=== PATIENT | female | born 1990 | race Hispanic/Latino ===

== ENCOUNTER 2020-04-11 15:11 | Emergency (ER) | payer SELFPAY ==
[~2020-04-11] VITALS: Ht 175.3 cm; Wt 54.4 kg
--- NOTE | 2020-04-11 15:33 | Emergency Department Note ---
History of Present Illnes History of Present Illness Chief Complaint: General Medicine Complaints History of Present Illness This is a 29 year old female was carrying her son on her back when she experienced a sudden onset of dizziness followed by LOC. Patient denies CP. States she recently donated plasma. H/O ITP . 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 Any updates have been documented here. Past Medical History Recent Fever: No Clinical Suspicion of Infectio: No New/Unexplained Change in Ment: No Other Medical History: ITP Past Surgical History: None Social History Smoking Cessation: Never Smoker Alcohol Use: None Any Illegal Drug Use: No Review of Systems Review of Systems Constitutional: Reports weakness EENTM: Reports no symptoms Cardiovascular: Reports no symptoms Respiratory: Reports no symptoms Gastrointestinal: Reports no symptoms Genitourinary: Reports no symptoms Musculoskeletal: Reports no symptoms Integumentary: Reports no symptoms Neurological: Reports no symptoms Psychological: Reports no symptoms Endocrine: Reports no symptoms Hematological/Lymphatic: Reports no symptoms Physical Exam Related Data Triage Vital Signs Vital Signs Date Time Temp Pulse Resp B/P (MAP) Pulse Ox O2 Delivery O2 Flow Rate FiO2 04/11/20 15:15 99.1 86 18 121/90 100 Vital signs reviewed: Yes Physical Exam CONSTITUTIONAL Constitutional: Present well-developed, Present well-nourished HENT HENT: Present normocephalic, Present atraumatic, Present oropharynx clear/ moist, Present nose normal HENT L/R: Present left ext ear normal, Present right ext ear normal EYES Eyes: Reports PERRL, Reports conjunctivae normal NECK Neck: Present ROM normal PULMONARY Pulmonary: Present effort normal, Present breath sounds normal CARDIOVASCULAR Cardiovascular: Present regular rhythm, Present heart sounds normal, Present capillary refill normal, Present normal rate GASTROINTESTINAL Abdominal: Present soft, Present nontender, Present bowel sounds normal GENITOURINARY Genitourinary: Present exam deferred SKIN Skin: Present warm, Present dry MUSCULOSKELETAL Musculoskeletal: Present ROM normal NEUROLOGICAL Neurological: Present alert, Present oriented x 3, Present no gross motor or sensory deficits PSYCHOLOGICAL Psychological: Present mood/affect normal, Present judgement normal Results Laboratory Lab results reviewed: Yes Laboratory comments WBC 5.2 Platelet 102 CMP : neg UA : neg ketones , small blood Imaging Imaging results reviewed: Yes Impressions [place] [id number] Patient Name: CHRISTOS XIAO MR #: [id number] : 1990 Age/Sex: 29/F Req #: [id number] Adm Physician: Ordered by: HAL MIR DO Report #: [id number] Location: [facility] Room/Bed: Procedure: [id number] HOPD/CT BRAIN WO-HOPD Exam Date: 04/11/20 Exam Time: 1611 REPORT STATUS: Signed Exam: Head CT without contrast History: Syncope, dizziness Comparison studies: None Technique: Axial images were obtained from the skull base to the vertex. Coronal and sagittal images reconstructed from the axial data. Dose modulation, iterative reconstruction, and/or weight based adjustment of the mA/kV was utilized to reduce the radiation dose to as low as reasonably achievable. Radiation dose: Total DLP: 969.14 mGy*cm. Estimated effective dose: DLP x 0.015 Intravenous contrast: None Findings: Scalp: No abnormalities. Bones: No fractures, blastic or lytic lesions. Brain sulci: Appropriate for age. Ventricles: Normal in size and configuration. No hydrocephalus. Extra-axial spaces: No masses, no fluid collection. Parenchyma: No abnormal densities. No masses, hemorrhage, acute or chronic vascular insults. Sellar/suprasellar region: No abnormalities. Craniocervical junction: Patent foramen magnum. No Chiari one malformation. Middle ear cavities and mastoids: Clear. Paranasal sinuses: Clear. IMPRESSION: No abnormalities. Signed by: Dr. Agnes Rosales M.D. on 04/11/2020 4:36 PM Dictated By: AGNES ROSALES MD 35 Transcribed By: GRICEL on 04/11/201635 COPY TO: HAL MIR DO~ Procedures 12 Lead ECG Interpretation ECG Interpretation : ECG: ECG 1 Township Supervisor: Interpreted by ED physician Date: Apr 11, 2020 Time: 16:43 Prior ECG tracings: reviewed Rhythm: sinus rhythm Rate: normal BPM: 82 QRS axis: normal ST segments normal: Yes T waves normal: Yes Clinical Impression: normal ECG Assessment & Plan Medical Decision Making MDM Diff Dx : PE, SAH, ACS, dehydration/hypovolemia, Assessment & Plan Final Impression: (1) Syncope and collapse Depart Disposition: HOME, SELF-CARE Last Vital Signs Date Time Temp Pulse Resp B/P (MAP) Pulse Ox O2 Delivery O2 Flow Rate FiO2 04/11/20 17:28 84 18 100 04/11/20 15:15 99.1 121/90 HAL MIR DO Apr 11, 2020 15:32
--- NOTE | 2020-04-11 16:39 | Diagnostic Imaging Report ---
Exam: Head CT without contrast History: Syncope, dizziness Comparison studies: None Technique: Axial images were obtained from the skull base to the vertex. Coronal and sagittal images reconstructed from the axial data. Dose modulation, iterative reconstruction, and/or weight based adjustment of the mA/kV was utilized to reduce the radiation dose to as low as reasonably achievable. Radiation dose: Total DLP: 969.14 mGy*cm. Estimated effective dose: DLP x 0.015 Intravenous contrast: None Findings: Scalp: No abnormalities. Bones: No fractures, blastic or lytic lesions. Brain sulci: Appropriate for age. Ventricles: Normal in size and configuration. No hydrocephalus. Extra-axial spaces: No masses, no fluid collection. Parenchyma: No abnormal densities. No masses, hemorrhage, acute or chronic vascular insults. Sellar/suprasellar region: No abnormalities. Craniocervical junction: Patent foramen magnum. No Chiari one malformation. Middle ear cavities and mastoids: Clear. Paranasal sinuses: Clear. IMPRESSION: No abnormalities. Signed by: Dr. Hair Little M.D. on 04/11/2020 4:36 PM
== END 2020-04-11 17:31 | disposition home or self-care (01) ==
LOC: FSED 15:11
DX: R42 Dizziness and giddiness (principal); R55 Syncope and collapse; D69.3 Immune thrombocytopenic purpura; W01.0XXA Fall on same level from slipping, tripping and stumbling without subsequent striking against object, initial encounter; Y92.008 Other place in unspecified non-institutional (private) residence as the place of occurrence of the external cause
CPT/HCPCS: 70450; 80053; 81003; 82553; 84484; 85025; 93005; 99283

== ENCOUNTER 2020-07-20 10:15 | Emergency (ER) | payer SELFPAY ==
[~2020-07-20] VITALS: Ht 175.3 cm; Wt 56.7 kg
[2020-07-20] MEDS ORDERED: ONDANSETRON HCL INJ 2MG/ML 2ML 2 MG/ML VIAL IV ONE (10:35)
[2020-07-20] MEDS ORDERED: MORPHINE SULFATE INJ 4 MG/ML INJ 1ML IV PRN (10:45)
[2020-07-20 11:09] LABS: BASOPHILS % 0.4 % (0.0-1.0); EOSINOPHILS % 0.3 % (0.0-6.0); HEMATOCRIT 44.8 % (34.2-44.1); HEMOGLOBIN 15.1 g/dL (12.0-16.0); LYMPHOCYTES # (AUTO) 1.5 (1.0-3.2); LYMPHOCYTES % 22.1 % (18.0-39.1); MEAN CORPUSCULAR HEMOGLOBIN 29.9 pg (28-32); MEAN CORPUSCULAR HGB CONC 33.7 g/dL (31-35); MEAN CORPUSCULAR VOLUME 88.7 fL (81-99); MONOCYTES # (AUTO) 0.3 (0.2-0.8); MONOCYTES % 3.7 % (4.4-11.3); NEUTROPHILS % 73.2 % (38.7-80.0); PLATELET COUNT 61 x10e3/uL (140-360); RED BLOOD COUNT 5.05 x10e6/uL (3.6-5.1); RED CELL DISTRIBUTION WIDTH 12.5 % (11.7-14.4)
[2020-07-20 11:34] LABS: ALANINE AMINOTRANSFERASE 12 IU/L (0-55); ALBUMIN 4.4 g/dL (3.5-5.0); ALBUMIN/GLOBULIN RATIO 1.4 (0.8-2.0); ALKALINE PHOSPHATASE 50 IU/L (40-150); ANION GAP 12.6 mmol/L (8-16); BLOOD UREA NITROGEN 7 mg/dL (7-26); BUN/CREATININE RATIO 11 (6-25); CALCIUM 8.5 mg/dL (8.4-10.2); CARBON DIOXIDE 24 mmol/L (22-29); CHLORIDE 108 mmol/L (98-107); CREATINE KINASE 40 IU/L (29-168); CREATININE, SERUM 0.66 mg/dL (0.57-1.11); EST GLOMERULAR FILTRATION RATE > 60 ML/MIN (60-); GLUCOSE 80 mg/dL (74-118); POTASSIUM 3.6 mmol/L (3.5-5.1); SODIUM 141 mmol/L (136-145)
[2020-07-20 11:35] LABS: CLARITY,URINE CLEAR (CLEAR); COLOR,URINE YELLOW (YELLOW); KETONES,URINE NEGATIVE (NEGATIVE); LEUKOCYTE ESTERASE ,URINE SMALL (NEGATIVE); NITRITE,URINE NEGATIVE (NEGATIVE); PREGNANCY TEST, URINE NEGATIVE (NEGATIVE); PROTEIN,URINE DIPSTICK NEGATIVE (NEGATIVE); URINE UROBILINOGEN 1 mg/dL (0.2 - 1)
[2020-07-20] MEDS ORDERED: IOPAMIDOL 370 MG/ML 200 ML INFUS..BTL INJ ONE (11:45)
[2020-07-20] MEDS ORDERED: SODIUM CHLORIDE 0.9% 50ML 50 ML ONE (11:45)
[2020-07-20 12:06] LABS: TRICHOMONAS,URINE FEW
[2020-07-20 12:07] LABS: BACTERIA,URINE MODERATE /HPF; EPITHELIAL CELLS,URINE MANY /LPF; RBC,URINE 0-5 /HPF (0-5)
[2020-07-20] MEDS ORDERED: KETOROLAC TROMETHAMINE 30 MG/ML VIAL IV ONE (12:16)
[2020-07-20] MEDS ORDERED: KEFLEX500 MG PO (12:34)
[2020-07-20] MEDS ORDERED: ULTRAM 50MG50 MG PO (12:34)
[2020-07-20] MEDS ORDERED: ZOFRAN4 MG SL (12:34)
[2020-07-20] MEDS ORDERED: ONDANSETRON HCL 4 MG ORAL DISINTEGRATING TAB PO ONE (12:45)
[2020-07-20 13:00] VITALS: BP 110/97
== END 2020-07-20 13:00 | disposition home or self-care (01) ==
LOC: ER 10:20
DX: R10.31 Right lower quadrant pain (principal); N39.0 Urinary tract infection, site not specified; R11.2 Nausea with vomiting, unspecified; R05 Cough; I10 Essential (primary) hypertension; E11.9 Type 2 diabetes mellitus without complications
CPT/HCPCS: 36415; 71045; 74177; 80053; 81001; 81025; 82550; 82553; 84484; 85025; 99284; J1885; J2270; J2405; Q0162; Q9967

== ENCOUNTER 2020-08-22 09:45 | Emergency (ER) | payer SELFPAY ==
[~2020-08-22] VITALS: Ht 175.3 cm; Wt 56.7 kg
[~2020-08-22 09:45] MED LIST: KEFLEX500 MG PO; ULTRAM 50MG50 MG PO; ZOFRAN4 MG SL
[2020-08-22] MEDS ORDERED: IBUPROFEN 600 MG TAB PO STA (10:01)
[2020-08-22 11:04] LABS: INFLUENZAE A&B ANTIGEN (RAPID) NEGATIVE (NEGATIVE)
[2020-08-22 11:05] LABS: STREPTOCOCCUS GRP A ANTIGEN NEGATIVE (NEGATIVE)
== END 2020-08-22 11:30 | disposition home or self-care (01) ==
LOC: ER 10:24
DX: J06.9 Acute upper respiratory infection, unspecified (principal); R05 Cough; R51.9 Headache, unspecified; I10 Essential (primary) hypertension; E11.9 Type 2 diabetes mellitus without complications; D69.3 Immune thrombocytopenic purpura; F17.210 Nicotine dependence, cigarettes, uncomplicated
CPT/HCPCS: 83518; 87070; 87400; 99283

== ENCOUNTER 2020-10-08 08:33 | Emergency (ER) | payer SELFPAY ==
[~2020-10-08] VITALS: Ht 175.3 cm; Wt 56.7 kg
== END 2020-10-08 10:13 | disposition home or self-care (01) ==
LOC: ER 08:57
DX: L03.011 Cellulitis of right finger (principal); S61.250A Open bite of right index finger without damage to nail, initial encounter; W55.01XA Bitten by cat, initial encounter; Y92.008 Other place in unspecified non-institutional (private) residence as the place of occurrence of the external cause
CPT/HCPCS: 99283

== ENCOUNTER 2024-04-16 19:28 | Emergency (ER) | payer OTHER ==
[~2024-04-16] VITALS: Ht 175.3 cm; Wt 68.0 kg
[2024-04-16] MEDS ORDERED: LEVETIRACETAM 1000 MG/100 ML IV ONE (19:45)
[2024-04-16 20:12] LABS: BASOPHILS % 0.5 % (0.0-1.0); EOSINOPHILS # (AUTO) 0.1 (0.0-0.4); EOSINOPHILS % 1.1 % (0.0-6.0); HEMOGLOBIN 12.9 g/dL (12.0-16.0); LYMPHOCYTES # (AUTO) 2.3 (1.0-3.2); LYMPHOCYTES % 30.9 % (18.0-39.1); MEAN CORPUSCULAR HEMOGLOBIN 30.9 pg (28-32); MEAN CORPUSCULAR HGB CONC 33.1 g/dL (31-35); MEAN CORPUSCULAR VOLUME 93.3 fL (81-99); MONOCYTES # (AUTO) 0.4 (0.2-0.8); MONOCYTES % 5.5 % (4.4-11.3); NEUTROPHILS # (AUTO) 4.7 (2.1-6.9); NEUTROPHILS % 61.9 % (38.7-80.0); PLATELET COUNT 135 x10e3/uL (140-360); RED BLOOD COUNT 4.18 x10e6/uL (3.6-5.1); RED CELL DISTRIBUTION WIDTH 11.9 % (11.7-14.4); WHITE BLOOD COUNT 7.58 x10e3/uL (4.8-10.8)
[2024-04-16] MEDS: SODIUM CHLORIDE 0.9% IV ONE (20:15)
[2024-04-16] MEDS: LEVETIRACETAM IV ONE (20:15)
[2024-04-16] MEDS: ACETAMINOPHEN 325 MG TAB PO ONE (20:16)
[2024-04-16] MEDS: KETOROLAC TROMETHAMINE 30 MG/ML VIAL IV STA (20:18)
[2024-04-16] MEDS ORDERED: KEPPRA500 MG PO (20:24)
[2024-04-16 20:27] LABS: ALBUMIN/GLOBULIN RATIO 1.4 (0.8-2.0); ANION GAP 12.5 mmol/L (8-16); BILIRUBIN,TOTAL 0.3 mg/dL (0.2-1.2); CALCIUM 9.5 mg/dL (8.4-10.2); CREATININE, SERUM 0.77 mg/dL (0.57-1.11); POTASSIUM 3.5 mmol/L (3.5-5.1); TOTAL PROTEIN 6.9 g/dL (6.5-8.1)
[2024-04-16 20:41] LABS: EOSINOPHILS % (MANUAL) 1 % (0-7); LYMPHOCYTES % (MANUAL) 32 % (19-48); NEUTROPHILS % (MANUAL) 66 % (40-74); PLATELET ESTIMATE ADEQUATE; PLATELET MORPHOLOGY COMMENT NORMAL; RBC MORPHOLOGY COMMENT NORMAL; REACTIVE LYMPHOCYTES 1
[2024-04-16 23:01] VITALS: PULSE 67; RESP 16; TEMP 98.3; O2SAT 99
== END 2024-04-16 23:02 | disposition home or self-care (01) ==
LOC: ER 19:35
DX: G40.909 Epilepsy, unspecified, not intractable, without status epilepticus (principal); I10 Essential (primary) hypertension; E11.9 Type 2 diabetes mellitus without complications; D69.3 Immune thrombocytopenic purpura; F31.9 Bipolar disorder, unspecified
CPT/HCPCS: 36415; 80053; 82542; 84702; 85025; 99284; J1885; J1953; J7050

== ENCOUNTER 2024-05-17 13:21 | Emergency (ER) | payer SELFPAY ==
[~2024-05-17] VITALS: Ht 175.3 cm; Wt 68.0 kg
[~2024-05-17 13:21] MED LIST changes: +KEPPRA500 MG PO
[2024-05-17 14:11] VITALS: TEMP 97.3
[2024-05-17 14:25] LABS: BASOPHILS % 0.5 % (0.0-1.0); EOSINOPHILS % 0.5 % (0.0-6.0); HEMATOCRIT 40.9 % (34.2-44.1); HEMOGLOBIN 13.9 g/dL (12.0-16.0); LYMPHOCYTES # (AUTO) 1.9 (1.0-3.2); LYMPHOCYTES % 24.3 % (18.0-39.1); MEAN CORPUSCULAR HEMOGLOBIN 31.4 pg (28-32); MEAN CORPUSCULAR VOLUME 92.3 fL (81-99); MONOCYTES # (AUTO) 0.4 (0.2-0.8); MONOCYTES % 4.9 % (4.4-11.3); NEUTROPHILS # (AUTO) 5.6 (2.1-6.9); NEUTROPHILS % 69.5 % (38.7-80.0); PLATELET COUNT 135 x10e3/uL (140-360); RED BLOOD COUNT 4.43 x10e6/uL (3.6-5.1); RED CELL DISTRIBUTION WIDTH 11.8 % (11.7-14.4); WHITE BLOOD COUNT 7.99 x10e3/uL (4.8-10.8)
[2024-05-17 14:39] LABS: INR 0.98; PARTIAL THROMBOPLASTIN TIME 28.8 seconds (23.8-35.5); PROTHROMBIN TIME 13.5 seconds (11.9-14.5)
[2024-05-17 14:47] LABS: ALANINE AMINOTRANSFERASE 15 IU/L (0-55); ALBUMIN 4.2 g/dL (3.5-5.0); ALBUMIN/GLOBULIN RATIO 1.4 (0.8-2.0); ALKALINE PHOSPHATASE 56 IU/L (40-150); ANION GAP 14.8 mmol/L (8-16); BILIRUBIN,TOTAL 0.9 mg/dL (0.2-1.2); BLOOD UREA NITROGEN 6 mg/dL (7-26); BUN/CREATININE RATIO 8 (6-25); CALCIUM 9.1 mg/dL (8.4-10.2); CARBON DIOXIDE 22 mmol/L (22-29); CHLORIDE 105 mmol/L (98-107); CREATINE KINASE 52 IU/L (29-168); CREATININE, SERUM 0.76 mg/dL (0.57-1.11); EST GLOMERULAR FILTRATION RATE 106 ML/MIN (>=60); GLUCOSE 88 mg/dL (74-118); POTASSIUM 3.8 mmol/L (3.5-5.1); SODIUM 138 mmol/L (136-145); TOTAL PROTEIN 7.2 g/dL (6.5-8.1)
[2024-05-17 14:55] LABS: TROPONIN I < 0.001 ng/mL (0-0.300)
[2024-05-17] MEDS ORDERED: IOPAMIDOL 370 MG/ML 100 ML INFUS..BTL INJ ONE (15:59)
[2024-05-17] MEDS: FAMOTIDINE 20 MG/2 ML VIAL IV STA (17:28)
[2024-05-17 17:31] VITALS: PULSE 71; RESP 17; O2SAT 100
[2024-05-17] MEDS ORDERED: ONDANSETRON ODT4 MG PO (17:35)
[2024-05-17] MEDS ORDERED: ACID REDUCER20 MG PO (17:35)
[2024-05-17 18:53] LABS: LYMPHOCYTES % (MANUAL) 24 % (19-48); MONOCYTES % (MANUAL) 5 % (3.4-9.0); NEUTROPHILS % (MANUAL) 71 % (40-74)
[2024-05-17 18:54] LABS: PLATELET ESTIMATE SLIGHTLY DECREASED; PLATELET MORPHOLOGY COMMENT NORMAL; RBC MORPHOLOGY COMMENT NORMAL
== END 2024-05-17 18:53 | disposition home or self-care (01) ==
LOC: ER 14:10
DX: K92.0 Hematemesis (principal); K29.70 Gastritis, unspecified, without bleeding; I10 Essential (primary) hypertension; E11.9 Type 2 diabetes mellitus without complications; G40.909 Epilepsy, unspecified, not intractable, without status epilepticus; F31.9 Bipolar disorder, unspecified
CPT/HCPCS: 36415; 71045; 71260; 74177; 80053; 82550; 83690; 84484; 84702; 85025; 85610; 85730; 93005; 99284; J2470; Q9967

== ENCOUNTER 2024-06-24 17:53 | Emergency (ER) | payer OTHER ==
[~2024-06-24] VITALS: Ht 175.3 cm; Wt 68.0 kg
[~2024-06-24 17:53] MED LIST changes: +ACID REDUCER20 MG PO; +ONDANSETRON ODT4 MG PO
[2024-06-24 18:05] VITALS: TEMP 98.9
[2024-06-24 18:52] LABS: BASOPHILS % 0.4 % (0.0-1.0); EOSINOPHILS # (AUTO) 0.1 (0.0-0.4); EOSINOPHILS % 0.8 % (0.0-6.0); HEMATOCRIT 42.1 % (34.2-44.1); HEMOGLOBIN 13.8 g/dL (12.0-16.0); LYMPHOCYTES % 31.8 % (18.0-39.1); MEAN CORPUSCULAR HEMOGLOBIN 30.3 pg (28-32); MEAN CORPUSCULAR HGB CONC 32.8 g/dL (31-35); MEAN CORPUSCULAR VOLUME 92.5 fL (81-99); MONOCYTES # (AUTO) 0.6 (0.2-0.8); MONOCYTES % 6.2 % (4.4-11.3); NEUTROPHILS # (AUTO) 5.7 (2.1-6.9); NEUTROPHILS % 60.7 % (38.7-80.0); PLATELET COUNT 132 x10e3/uL (140-360); RED BLOOD COUNT 4.55 x10e6/uL (3.6-5.1); RED CELL DISTRIBUTION WIDTH 11.7 % (11.7-14.4); WHITE BLOOD COUNT 9.31 x10e3/uL (4.8-10.8)
[2024-06-24 19:02] LABS: ANION GAP 15.4 mmol/L (8-16); BLOOD UREA NITROGEN 7 mg/dL (7-26); BUN/CREATININE RATIO 10 (6-25); CALCIUM 9.4 mg/dL (8.4-10.2); CARBON DIOXIDE 21 mmol/L (22-29); CHLORIDE 106 mmol/L (98-107); CREATININE, SERUM 0.73 mg/dL (0.57-1.11); EST GLOMERULAR FILTRATION RATE 111 ML/MIN (>=60); GLUCOSE 95 mg/dL (74-118); SODIUM 139 mmol/L (136-145)
[2024-06-24] MEDS: ACETAMINOPHEN 325 MG TAB PO ONE (19:03)
[2024-06-24 19:10] LABS: POTASSIUM 3.4 mmol/L (3.5-5.1)
[2024-06-24] MEDS: IBUPROFEN 600 MG TAB PO STA (19:20)
[2024-06-24 19:21] LABS: COVID 19 ANTIGEN NOT DETECTED (NEGATIVE)
[2024-06-24 19:25] VITALS: PULSE 79; RESP 18
[2024-06-24 20:24] VITALS: BP 118/67; PULSE 68; RESP 18; TEMP 98.1; O2SAT 97
== END 2024-06-24 20:30 | disposition home or self-care (01) ==
LOC: ER 18:07
DX: R05.9 Cough, unspecified (principal); R07.81 Pleurodynia; I10 Essential (primary) hypertension; E11.9 Type 2 diabetes mellitus without complications; G40.909 Epilepsy, unspecified, not intractable, without status epilepticus; F31.9 Bipolar disorder, unspecified; Z11.52 Encounter for screening for COVID-19
CPT/HCPCS: 0223U; 36415; 71045; 80048; 84484; 85025; 87400; 93005; 99284

== ENCOUNTER 2024-07-05 11:21 | Emergency (ER) | payer MEDICARE, OTHER ==
[~2024-07-05] VITALS: Ht 175.3 cm; Wt 65.8 kg
[2024-07-05 11:35] VITALS: TEMP 97.8
[2024-07-05 12:04] LABS: BASOPHILS % 0.4 % (0.0-1.0); HEMOGLOBIN 13.4 g/dL (12.0-16.0); LYMPHOCYTES # (AUTO) 1.7 (1.0-3.2); LYMPHOCYTES % 22.6 % (18.0-39.1); MEAN CORPUSCULAR HEMOGLOBIN 29.8 pg (28-32); MEAN CORPUSCULAR HGB CONC 32.7 g/dL (31-35); MEAN CORPUSCULAR VOLUME 91.3 fL (81-99); MONOCYTES # (AUTO) 0.4 (0.2-0.8); MONOCYTES % 5.2 % (4.4-11.3); NEUTROPHILS # (AUTO) 5.5 (2.1-6.9); NEUTROPHILS % 71.4 % (38.7-80.0); PLATELET COUNT 139 x10e3/uL (140-360); RED BLOOD COUNT 4.49 x10e6/uL (3.6-5.1); RED CELL DISTRIBUTION WIDTH 11.9 % (11.7-14.4); WHITE BLOOD COUNT 7.64 x10e3/uL (4.8-10.8)
[2024-07-05 12:20] LABS: ANION GAP 16.2 mmol/L (8-16); CALCIUM 9.4 mg/dL (8.4-10.2); CREATININE, SERUM 0.76 mg/dL (0.57-1.11)
[2024-07-05 12:24] LABS: POTASSIUM 3.2 mmol/L (3.5-5.1)
[2024-07-05 12:30] VITALS: PULSE 67; RESP 16
[2024-07-05] MEDS ORDERED: PROMETHAZINE HC25 M1 PO (12:47)
[2024-07-05] MEDS ORDERED: TRAZODONE HCL50 MG PO (12:48)
[2024-07-05 13:37] VITALS: BP 132/83; PULSE 72; O2SAT 100
== END 2024-07-05 14:00 | disposition home or self-care (01) ==
LOC: ER 11:26
DX: R55 Syncope and collapse (principal); I10 Essential (primary) hypertension; E11.9 Type 2 diabetes mellitus without complications; G40.909 Epilepsy, unspecified, not intractable, without status epilepticus; F31.9 Bipolar disorder, unspecified; F17.210 Nicotine dependence, cigarettes, uncomplicated
CPT/HCPCS: 36415; 80048; 84702; 85025; 93005; 99284

== ENCOUNTER 2024-09-23 08:14 | Emergency (ER) | payer OTHER ==
[~2024-09-23] VITALS: Ht 175.3 cm; Wt 65.8 kg
[~2024-09-23 08:14] MED LIST changes: +PROMETHAZINE HC25 M1 PO; +TRAZODONE HCL50 MG PO
[2024-09-23 08:22] VITALS: PULSE 96; RESP 16; TEMP 98.7; O2SAT 100
[2024-09-23] MEDS ORDERED: MEDROL4 M2 PO (08:36)
== END 2024-09-23 08:50 | disposition home or self-care (01) ==
LOC: ER 08:16
DX: L29.9 Pruritus, unspecified (principal); I10 Essential (primary) hypertension; E11.9 Type 2 diabetes mellitus without complications; G40.909 Epilepsy, unspecified, not intractable, without status epilepticus; F31.9 Bipolar disorder, unspecified; F17.210 Nicotine dependence, cigarettes, uncomplicated
CPT/HCPCS: 99282

== ENCOUNTER 2025-04-09 18:34 | Emergency (ER) | payer OTHER ==
[~2025-04-09] VITALS: Ht 175.3 cm; Wt 65.8 kg
[~2025-04-09 18:34] MED LIST changes: +MEDROL4 M2 PO
[2025-04-09 18:43] VITALS: TEMP 98
[2025-04-09 19:29] LABS: BASOPHILS % 0.7 % (0.0-1.0); EOSINOPHILS % 0.4 % (0.0-6.0); LYMPHOCYTES % 32.4 % (18.0-39.1); MONOCYTES % 4.9 % (4.4-11.3); NEUTROPHILS % 61.5 % (38.7-80.0); RED CELL DISTRIBUTION WIDTH 12.4 % (11.7-14.4)
[2025-04-09 19:42] LABS: EST GLOMERULAR FILTRATION RATE 101.0 ML/MIN (>=60)
[2025-04-09] MEDS: KETOROLAC TROMETHAMINE 30 MG/ML VIAL IV STA (19:56)
[2025-04-09] MEDS: SODIUM CHLORIDE 0.9% 1000ML 1,000 ML IV ONE (20:01)
[2025-04-09] MEDS ORDERED: IOPAMIDOL 370 MG/ML 100 ML INFUS..BTL INJ ONE (20:14)
[2025-04-09] MEDS: ONDANSETRON HCL INJ 2MG/ML 2ML 2 MG/ML VIAL IV STA (20:15)
[2025-04-09 20:47] LABS: LEUKOCYTE ESTERASE ,URINE NEGATIVE (NEGATIVE); PROTEIN,URINE DIPSTICK TRACE (NEGATIVE)
[2025-04-09 20:48] LABS: URINE UROBILINOGEN 1 mg/dL (0.2 - 1)
[2025-04-09 20:56] LABS: EPITHELIAL CELLS,URINE MANY /LPF
[2025-04-09 21:30] VITALS: PULSE 82; RESP 16
[2025-04-09] MEDS ORDERED: ONDANSETRON ODT4 MG SL (21:42)
[2025-04-09] MEDS ORDERED: MACROBID 100 M100 MG PO (21:42)
[2025-04-09 21:52] VITALS: BP 101/60; PULSE 82; RESP 16; O2SAT 100
== END 2025-04-09 21:50 | disposition home or self-care (01) ==
LOC: ER 18:41
DX: R10.31 Right lower quadrant pain (principal); N39.0 Urinary tract infection, site not specified; R11.2 Nausea with vomiting, unspecified; I10 Essential (primary) hypertension; E11.9 Type 2 diabetes mellitus without complications; G40.909 Epilepsy, unspecified, not intractable, without status epilepticus; F31.9 Bipolar disorder, unspecified; F43.10 Post-traumatic stress disorder, unspecified; Z86.2 Personal history of diseases of the blood and blood-forming organs and certain disorders involving the immune mechanism; F17.210 Nicotine dependence, cigarettes, uncomplicated
CPT/HCPCS: 36415; 74177; 80053; 81001; 84702; 85025; 99284; J1885; J2405; J7030; Q9967